=== PATIENT | male | born 1955 | race Caucasian/White ===

== ENCOUNTER 2017-11-09 12:32 | Inpatient (IN) | payer BC ==
[2017-11-09 13:49] LABS: #Eosinphils 0.2 thou/uL (0.0-0.7); #Lymphocytes 1.4 thou/uL (1.20-3.40); #Monocytes 0.5 thou/uL (0.11-0.59); #Neutrophils 4.5 thou/uL (1.40-6.50); %Basophils 0.4 % (0.0-1.0); %Eosinophils 2.7 % (0.0-10.0); %Lymphocytes 20.8 % (21.0-51.0); %Monocytes 6.8 % (0.0-10.0); %Neutrophils 69.3 % (42.0-75.0); Hemoglobin 13.1 g/dL (14.0-18.0); Mean Corpuscular HGB CONC 35.7 g/dL (32.0-36.0); Mean Corpuscular Hemoglobin 30.3 pg (27.0-31.0); Mean Platelet Volume 8.6 fL (7.4-10.4); Platelet Count 147 thou/uL (130-400); RBC Distribution Width 11.9 % (11.5-14.5); Red Blood Cell (RBC) Count 4.32 mill/uL (4.70-6.10); White Blood Cell (WBC) Count 6.5 thou/uL (4.8-10.8)
[2017-11-09 14:10] LABS: INR-International Normal Ratio 1.1; Prothrombin Time 14.3 SEC (12.0-14.7)
[2017-11-09 14:11] LABS: PTT 30.2 SEC (22.9-36.1)
[2017-11-09 14:16] LABS: Anion Gap 12 mmol/L (10-20); BUN (Urea Nitrogen) 21 mg/dL (8.4-25.7); Calc. Creatinine Clearance 0 mL/min (70-130); Calcium 10.1 mg/dL (7.8-10.44); Carbon Dioxide 26 mmol/L (23-31); Chloride 108 mmol/L (98-107); Estimated GFR-MDRD 57; Glucose 118 mg/dL (80-115); Potassium 4.4 mmol/L (3.5-5.1); Sodium 142 mmol/L (136-145)
--- NOTE | 2017-11-09 14:22 | RAD ---
TWO VIEW CHEST: Indication: Cough. Comparison: 08-01-09 FINDINGS: The lungs are clear. Cardiac silhouette is stable. No free air. Osseous structures are intact. IMPRESSION: No focal consolidation. POS: [facility]
--- NOTE | 2017-11-09 14:45 | ULT ---
VENOUS DOPPLER ULTRASOUND OF LEFT LOWER EXTREMITY: Date: 11/09/17 HISTORY: Left leg pain and redness. TECHNIQUE: Hess scale ultrasound with color flow and spectral Doppler imaging of the deep venous system of the l eft lower extremity is performed. FINDINGS: There is good flow, compression, and augmentation noted in the left common femoral, femoral, deep fem oral, popliteal, posterior tibial, and greater saphenous veins on either side. IMPRESSION: No evidence of deep venous thrombosis in the left lower extremity. POS: [facility]
[2017-11-09] MEDS ORDERED: Clindamycin/D5W 900 mg/50 ml Premix Bag ONE (15:06)
[2017-11-09] MEDS ORDERED: Sodium Chloride 0.9% 100 ML ONE (16:03)
[2017-11-09] MEDS ORDERED: Piperacillin/Tazobactam 4.5 GM VIAL ONE (16:03)
[2017-11-09] MEDS ORDERED: Acetaminophen 325 MG TAB PO PRN (19:13)
[2017-11-09 19:36] VITALS: BMI 26.4
[2017-11-09] MEDS ORDERED: Vancomycin HCl 1 GM in Premix Bag 1 BAG IVPB SCH (21:00)
[2017-11-09] MEDS ORDERED: Clindamycin/D5W 900 MG in Premix Bag 1 BAG IVPB SCH (22:00)
[2017-11-09] MEDS ORDERED: Ondansetron PF 4 MG/2 ML Vial IVP PRN (22:08)
[2017-11-09] MEDS ORDERED: Dextrose 5% in Water 1,000 ML IV PRN (22:11)
[2017-11-09] MEDS ORDERED: Dextrose 50% Abboject 50 ML SYRINGE SLOW IVP PRN (22:11)
[2017-11-09] MEDS ORDERED: HumaLOG 300 UNITS/3 ML VIAL SC PRN (22:11)
[2017-11-09] MEDS ORDERED: Acetaminophen 500 MG TAB PO SCH (22:45)
[2017-11-09] MEDS ORDERED: Gabapentin 300 MG CAP PO SCH (22:45)
[2017-11-09] MEDS ORDERED: diphenhydrAMINE 25 MG CAP PO SCH (22:45)
[2017-11-09] MEDS ORDERED: Tamsulosin HCl 0.4 MG CAP PO SCH (22:45)
[2017-11-09] MEDS ORDERED: Lisinopril 20 MG TAB PO SCH (22:45)
[2017-11-09] MEDS: Piperacillin/Tazobactam 3.375 GM in Sodium Chloride 0.9% 100 ML IVPB SCH (23:02)
[2017-11-09] MEDS: Sodium Chloride 0.9% 1,000 ML IV SCH (23:45)
--- NOTE | 2017-11-10 04:52 | HP ---
TIME OF EVALUATION: 09:45 p.m. PRIMARY CARE PHYSICIAN: Dr. Jose Enrique Post. CHIEF COMPLAINT: Leg swelling and redness. HISTORY OF PRESENT ILLNESS: This is a 62-year-old male patient with past medical history of diabetes who came to the hospital after having a left lower extremity redness, pain, swelling, decreased range of motion due to pain, patient also has associated fever, no purulent wound reported. symptoms are moderate, no clear triggers no alleviating factors. REVIEW OF SYSTEMS: Constitutional: The patient has fever, chills, generalized weakness. Respiratory: No cough, sputum production, or shortness of breath. Cardiovascular: No chest pain, palpitations, or shortness of breath. Gastrointestinal: No nausea, vomiting, diarrhea, or abdominal pain. Central Nervous Systems: No dizziness, headache, or feeling lightheaded. Genitourinary : No burning on urination. Extremities: The patient has left lower extremity swelling, redness, tenderness, decreased range of motion. All systems were reviewed and negative except for the findings mentioned above. PAST MEDICAL HISTORY: Includes diabetes, the patient also has hypothyroidism, history of bleeding ulcers, BPH. PAST SURGICAL HISTORY: The patient had a polyp removed from colon. PSYCHIATRIC HISTORY: No previous psychiatric history. SOCIAL HISTORY: The patient drinks socially. No smoking history. The patient lives at home with family, lives with his spouse. KNOWN ALLERGIES: No known drug allergies. FAMILY HISTORY: Review and non contributory for current presentation REPORTED MEDICATIONS: Omeprazole, aspirin, atorvastatin, finasteride, lisinopril, gabapentin, tamsulosin, levothyroxine, metformin, Coenzyme Q10, vitamin B12, fish oil, Flexeril. PHYSICAL EXAMINATION: VITAL SIGNS: Blood pressure 104/75 with heart rate 76, respiratory rate was 18 , temperature 98.5, oxygen saturation 95 on room air. GENERAL APPEARANCE: Patient is alert and oriented, in no any acute distress. HEAD AND EYES: Normal conjunctivae. Moist oral mucosa. Anicteric. NECK: No JVD. RESPIRATORY: Bilateral air entry. No wheezing. Symmetric expansion. CARDIOVASCULAR: Normal rate, regular rhythm. No murmurs, no gallop. EXTREMITIES: No edema. ABDOMEN: Soft, normal bowel sounds. MUSCULOSKELETAL: Baseline range of motion and strength. No tenderness. SKIN: The patient has left lower extremity redness, tenderness, swelling, decreased range of motion due to pain. RADIOLOGY: The patient has Doppler negative for DVT. LABORATORY DATA: Reviewed. The patient has white count 6.5, hemoglobin 13.1, MCV 85, platelet count 147,000. Coagulation was normal. Sodium 142, potassium 4.4, chloride 108, carbon dioxide 36, anion gap 12, BUN 21, creatinine 1.2, GFR 57, glucose 118. Lactic acid 1.3, calcium 10.1. ASSESSMENT AND PLAN: The patient will be placed in the hospital with following medical problems: 1. Left lower extremity cellulitis. The patient has been placed on antibiotics for that reason. Broad spectrum given the fact the patient is diabetic. We will adjust antibiotics. 2. Uncontrolled diabetes. Blood sugar 118, we will give sliding scale for optimal control. 3. History of coronary artery disease, this is chronic, stable. Reconcile home medications. 4. Hypothyroidism. Continue hormone replacement. 5. Deep venous thrombosis prophylaxis. 6. History of hypertension. Reconcile home medications. Chronic. Stable. MTDD
[2017-11-10 05:03] LABS: #Eosinphils 0.3 thou/uL (0.0-0.7); #Lymphocytes 1.3 thou/uL (1.20-3.40); #Monocytes 0.6 thou/uL (0.11-0.59); #Neutrophils 2.7 thou/uL (1.40-6.50); %Basophils 0.1 % (0.0-1.0); %Eosinophils 5.7 % (0.0-10.0); %Lymphocytes 26.7 % (21.0-51.0); %Neutrophils 55.5 % (42.0-75.0); Hemoglobin 12.6 g/dL (14.0-18.0); Mean Corpuscular HGB CONC 34.6 g/dL (32.0-36.0); Mean Corpuscular Hemoglobin 32.4 pg (27.0-31.0); Mean Corpuscular Volume 93.6 fL (78.0-98.0); Mean Platelet Volume 7.8 fL (7.4-10.4); Platelet Count 143 thou/uL (130-400); Red Blood Cell (RBC) Count 3.89 mill/uL (4.70-6.10); White Blood Cell (WBC) Count 4.9 thou/uL (4.8-10.8)
[2017-11-10] MEDS: Piperacillin/Tazobactam 3.375 GM in Sodium Chloride 0.9% 100 ML IVPB SCH ×4 (05:09→23:38)
[2017-11-10] MEDS: Levothyroxine Sodium 25 MCG TAB PO SCH (05:09)
[2017-11-10 05:53] LABS: Anion Gap 16 mmol/L (10-20); BUN (Urea Nitrogen) 22 mg/dL (8.4-25.7); Calc. Creatinine Clearance 69 mL/min (70-130); Calcium 8.9 mg/dL (7.8-10.44); Carbon Dioxide 21 mmol/L (23-31); Chloride 109 mmol/L (98-107); Estimated GFR-MDRD 57; Glucose 110 mg/dL (80-115); Potassium 4.5 mmol/L (3.5-5.1); Sodium 141 mmol/L (136-145)
[2017-11-10] MEDS: Fish Oil 1,000 MG CAP PO SCH (08:49)
[2017-11-10] MEDS: Enoxaparin Sodium 40 MG/0.4 ML SYRINGE SC SCH (08:49)
[2017-11-10] MEDS: Atorvastatin Calcium 40 MG TAB PO SCH (08:50)
[2017-11-10] MEDS: Folic Acid/Vit B Comp W-C PO SCH (08:50)
[2017-11-10] MEDS: Lisinopril 20 MG TAB PO SCH ×2 (08:50→21:07)
[2017-11-10] MEDS: Ubidecarenone 50 MG CAP PO SCH (08:50)
[2017-11-10] MEDS: Aspirin 81 mg Enteric Coated Tablet PO SCH (08:51)
[2017-11-10] MEDS: Sodium Chloride 0.9% 1,000 ML IV SCH ×2 (11:22→21:10)
--- NOTE | 2017-11-10 19:01 | PRG ---
DATE OF SERVICE: 11/10/2017 SUBJECTIVE: The patient is seen and examined at the bedside. He is feeling better. He does not hav e chills and fever like before this hospitalization. His pulse is noticed down to high 40s, but this is asymptomatic. OBJECTIVE: VITAL SIGNS: Blood pressure is 111/73, pulse is 49, respiratory rate is 18, O2 saturation is 92, tem perature is 98%. Temperature 98 degrees of Fahrenheit. HEENT: Atraumatic, normocephalic. Eyes are PERRLA. Sclerae nonicteric. Oral mucosa is moist. NECK: Supple. LUNGS: Clear. HEART: S1, S2 normal. ABDOMEN: Soft, nontender. EXTREMITIES: Left lower extremity above the ankle improved according to the patient who saw that yes terday and today it is significantly better. LABORATORY DATA: White count 4.9, hemoglobin 12.6, hematocrit 36.4, platelet count is 143,000. Chem istry showed a chloride of 109, CO2 of 21 and the rest of chemistry within normal limits. Glycemia i s ranging from 113 to 131. Microbiology: Blood culture no growth so far. IMPRESSION: 1. Left lower extremity cellulitis improved with IV clindamycin. 2. Uncontrolled diabetes, actually quite well controlled. 3. History of coronary artery disease, stable. 4. Hypothyroidism on replacement. 5. History of hypertension. PLAN: Continue clindamycin. We will check with progression and improvement of his infection. He sh ould be able to go home tomorrow.
[2017-11-10] MEDS: Acetaminophen 500 MG TAB PO SCH (21:06)
[2017-11-10] MEDS: Gabapentin 300 MG CAP PO SCH (21:06)
[2017-11-10] MEDS: Tamsulosin HCl 0.4 MG CAP PO SCH (21:06)
[2017-11-10] MEDS: diphenhydrAMINE 25 MG CAP PO SCH (21:06)
[2017-11-10] MEDS ORDERED: metFORMIN 500 MG TAB PO SCH (21:45)
[2017-11-10] MEDS ORDERED: metFORMIN XR 500 MG TAB PO SCH (21:45)
[2017-11-11] MEDS: Piperacillin/Tazobactam 3.375 GM in Sodium Chloride 0.9% 100 ML IVPB SCH ×4 (05:03→23:26)
[2017-11-11] MEDS: Levothyroxine Sodium 25 MCG TAB PO SCH (05:34)
[2017-11-11] MEDS: Sodium Chloride 0.9% 1,000 ML IV SCH ×2 (08:37→19:46)
[2017-11-11] MEDS: Enoxaparin Sodium 40 MG/0.4 ML SYRINGE SC SCH (08:37)
[2017-11-11] MEDS: Fish Oil 1,000 MG CAP PO SCH (08:38)
[2017-11-11] MEDS: Ubidecarenone 50 MG CAP PO SCH (08:38)
[2017-11-11] MEDS: Folic Acid/Vit B Comp W-C PO SCH (08:38)
[2017-11-11] MEDS: Atorvastatin Calcium 40 MG TAB PO SCH (08:39)
[2017-11-11] MEDS: Aspirin 81 mg Enteric Coated Tablet PO SCH (08:39)
[2017-11-11] MEDS: Lisinopril 20 MG TAB PO SCH ×2 (08:39→20:37)
[2017-11-11] MEDS: Insulin Glargine 14 UNITS in Pre-Filled Syringe 1 EACH SC SCH (08:39)
[2017-11-11] MEDS ORDERED: INSULIN GLARGINE HUM REC ANLOG SC SCH (09:00)
[2017-11-11] MEDS ORDERED: [UNRECOGNIZED DRUG - OTHER] SC SCH (09:00)
[2017-11-11] MEDS: Gabapentin 300 MG CAP PO SCH (20:37)
[2017-11-11] MEDS: Acetaminophen 500 MG TAB PO SCH (20:37)
[2017-11-11] MEDS: Tamsulosin HCl 0.4 MG CAP PO SCH (20:37)
[2017-11-11] MEDS: diphenhydrAMINE 25 MG CAP PO SCH (20:37)
[2017-11-11] MEDS: metroNIDAZOLE 500 MG TAB PO SCH (20:41)
[2017-11-11] MEDS ORDERED: metFORMIN XR 500 MG TAB PO SCH (21:00)
--- NOTE | 2017-11-11 23:50 | PDOC.PN ---
- Subjective Encounter Start Date: 11/11/17 Encounter Start Time: 17:00 Subjective: nsg notes rev, janine ovn, no new c/o other than diarrhea x6 today -: no prior issues with diarrhea -: also notes his HR has been low which is also new for him - Objective Resuscitation Status: Resuscitation Status FULL:Full Resuscitation Vital Signs & Weight: Vital Signs (12 hours) Temp Pulse Resp BP BP BP Pulse Ox 11/11/17 23:39 45 L 117/68 11/11/17 20:37 168/84 H 11/11/17 20:00 98.8 F 44 L 16 11/11/17 19:41 98.8 F 44 L 16 168/84 H 95 Weight Admit Weight 181 lb 7 oz Weight 181 lb 7 oz I&O: 11/10/17 11/11/17 11/12/17 06:59 06:59 06:59 Intake Total 1100 2740 3100 Output Total 600 1875 Balance 284 458 3995 Result Diagrams: 11/12/17 03:55 11/12/17 03:55 Additional Labs: Accuchecks 11/11/17 11/11/17 11/11/17 19:45 16:27 11:20 POC Glucose 163 H 118 H 134 H 11/11/17 06:07 POC Glucose 124 H Phys Exam - Physical Examination Constitutional: NAD HEENT: moist MMs Respiratory: no wheezing, no rales, no rhonchi, clear to auscultation bilateral Cardiovascular: RRR, no significant murmur, no rub Gastrointestinal: soft, positive bowel sounds Musculoskeletal: no edema Neurological: moves all 4 limbs -: area of cellulitis and edema is significantly imprv compared to outlined Dx/Plan - Plan * cellulitis of LLE * significantly improved * currently on pipt-az, may be able to de-escalate to an oral regimen diarrhea, acute check for c diff, if negative, could also be due to abx itself empiric metronidazole - d/c if c diff negative bradycardia pt with personal hx of CAD but no known hx of bradycardia, currently asymptomatic and other vital signs are stable c/s cardiology check EKG, TSH, ECHO pt reports increasing episodes of what he terms as "indigestion" over the past few weeks - unclear if this is an anginal equivalent - does not currently have this discomfort diet: cardiac activity: as simon dvt ppx Review of Systems - Medications/Allergies Allergies/Adverse Reactions: Allergies Allergy/AdvReac Type Severity Reaction Status Date / Time No Known Allergies Allergy Verified 11/09/17 20:03 Medications: Current Medications Acetaminophen (Tylenol) 500 mg PO HS [facility] Last Admin: 11/11/17 20:37 Dose: 500 mg Aspirin (Ecotrin) 81 mg PO DAILY [facility] Last Admin: 11/11/17 08:39 Dose: 81 mg Atorvastatin Calcium (Lipitor) 40 mg PO DAILY [facility] Last Admin: 11/11/17 08:39 Dose: 40 mg Coenzyme Q10 (Coenzyme Q10) 200 mg PO DAILY [facility] Last Admin: 11/11/17 08:38 Dose: 200 mg Dextrose/Water (Dextrose 50%) 25 gm SLOW IVP PRN PRN PRN Reason: Hypoglycemia Diphenhydramine HCl (Benadryl) 25 mg PO [facility] Last Admin: 11/11/17 20:37 Dose: 25 mg Enoxaparin Sodium (Lovenox) 40 mg SC 0900 [facility] Last Admin: 11/11/17 08:37 Dose: 40 mg Fish Oil (Fish Oil) 2,000 mg PO DAILY [facility] Last Admin: 11/11/17 08:38 Dose: 2,000 mg Gabapentin (Neurontin) 300 mg PO [facility] Last Admin: 11/11/17 20:37 Dose: 300 mg Glucagon (Glucagon) 1 mg IM PRN PRN PRN Reason: Hypoglycemia Piperacillin Sod/Tazobactam (Sod 3.375 gm/ Sodium Chloride) 100 mls @ 200 mls/ hr IVPB Q6HR [facility] Stop: 11/13/17 03:30 Last Admin: 11/11/17 23:26 Dose: 100 mls Dextrose/Water (D5w) 1,000 mls @ 0 mls/hr IV .Q0M PRN PRN Reason: Hypoglycemia Sodium Chloride (Normal Saline 0.9%) 1,000 mls @ 100 mls/hr IV .Q10H [facility] Last Admin: 11/11/17 19:46 Dose: 1,000 mls Insulin Glargine 14 units/ (Miscellaneous Medication) 0.14 mls @ 0 mls/hr SC DAILY [facility] Last Admin: 11/11/17 08:39 Dose: 0.14 mls Insulin Human Lispro (Humalog) 0 units SC .MILD SLIDING SCALE PRN PRN Reason: Mild Correctional Scale Levothyroxine Sodium (Synthroid) 25 mcg PO 0600 [facility] Last Admin: 11/11/17 05:34 Dose: 25 mcg Lisinopril (Zestril) 20 mg PO BID [facility] Last Admin: 11/11/17 20:37 Dose: 20 mg Metformin HCl (Glucophage Xr) 1,500 mg PO [facility] Last Admin: 11/11/17 20:38 Dose: 1,500 mg Metronidazole (Flagyl) 500 mg PO TID [facility] Last Admin: 11/11/17 20:41 Dose: 500 mg Ondansetron HCl (Zofran) 4 mg IVP Q6H PRN PRN Reason: Nausea/Vomiting Pantoprazole Sodium (Protonix) 40 mg PO DAILY [facility] Pantoprazole Sodium (Protonix) 40 mg PO NOW [facility] Stop: 11/11/17 23:59 Last Admin: 11/11/17 22:16 Dose: 40 mg Tamsulosin HCl (Flomax) 0.4 mg PO [facility] Last Admin: 11/11/17 20:37 Dose: 0.4 mg Vitamin B Complex/Vit C/Folic Acid (Nephro-Tori Tablet) 1 tab PO DAILY [facility] Last Admin: 11/11/17 08:38 Dose: 1 tab
[2017-11-12 04:03] LABS: #Basophils 0.1 thou/uL (0.0-0.2); #Eosinphils 0.2 thou/uL (0.0-0.7); #Lymphocytes 1.5 thou/uL (1.20-3.40); #Monocytes 0.4 thou/uL (0.11-0.59); #Neutrophils 2.2 thou/uL (1.40-6.50); %Basophils 1.5 % (0.0-1.0); %Eosinophils 4.6 % (0.0-10.0); %Lymphocytes 34.9 % (21.0-51.0); %Monocytes 8.2 % (0.0-10.0); %Neutrophils 50.9 % (42.0-75.0); Hemoglobin 12.1 g/dL (14.0-18.0); Mean Corpuscular HGB CONC 34.9 g/dL (32.0-36.0); Mean Corpuscular Hemoglobin 32.5 pg (27.0-31.0); Mean Corpuscular Volume 93.2 fL (78.0-98.0); Mean Platelet Volume 7.4 fL (7.4-10.4); Platelet Count 137 thou/uL (130-400); RBC Distribution Width 12.9 % (11.5-14.5); Red Blood Cell (RBC) Count 3.73 mill/uL (4.70-6.10); White Blood Cell (WBC) Count 4.3 thou/uL (4.8-10.8)
[2017-11-12 04:21] LABS: Anion Gap 12 mmol/L (10-20); BUN (Urea Nitrogen) 18 mg/dL (8.4-25.7); Calc. Creatinine Clearance 70 mL/min (70-130); Carbon Dioxide 23 mmol/L (23-31); Chloride 115 mmol/L (98-107); Estimated GFR-MDRD 58; Glucose 103 mg/dL (80-115); Magnesium 2.2 mg/dL (1.6-2.6); Potassium 4.7 mmol/L (3.5-5.1); Sodium 145 mmol/L (136-145)
[2017-11-12] MEDS: Levothyroxine Sodium 25 MCG TAB PO SCH (05:49)
[2017-11-12] MEDS: Sodium Chloride 0.9% 1,000 ML IV SCH ×2 (06:21→16:53)
[2017-11-12] MEDS: Piperacillin/Tazobactam 3.375 GM in Sodium Chloride 0.9% 100 ML IVPB SCH ×2 (06:21→12:32)
[2017-11-12] MEDS: Aspirin 81 mg Enteric Coated Tablet PO SCH (10:18)
[2017-11-12] MEDS: Atorvastatin Calcium 40 MG TAB PO SCH (10:18)
[2017-11-12] MEDS: Folic Acid/Vit B Comp W-C PO SCH (10:19)
[2017-11-12] MEDS: metroNIDAZOLE 500 MG TAB PO SCH ×3 (10:19→17:12)
[2017-11-12] MEDS: Ubidecarenone 50 MG CAP PO SCH (10:19)
[2017-11-12] MEDS: Fish Oil 1,000 MG CAP PO SCH (10:19)
[2017-11-12] MEDS: Lisinopril 20 MG TAB PO SCH (10:20)
[2017-11-12] MEDS: Enoxaparin Sodium 40 MG/0.4 ML SYRINGE SC SCH (10:20)
[2017-11-12] MEDS: Insulin Glargine 14 UNITS in Pre-Filled Syringe 1 EACH SC SCH (10:20)
[2017-11-12] MEDS ORDERED: Acetaminophen 325 MG TAB PO PRN (11:29)
[2017-11-12] MEDS ORDERED: hydrALAZINE 20 MG/ML VIAL SLOW IVP PRN (11:29)
--- NOTE | 2017-11-12 11:57 | PDOC.PN ---
- Subjective Encounter Start Date: 11/12/17 Encounter Start Time: 11:55 Subjective: nsg notes rev, janine ovn pt still c/o diarrhea, now has a ENGLISH -: no other c/o, pt's and dtr @ bedside - Objective Resuscitation Status: Resuscitation Status FULL:Full Resuscitation Vital Signs & Weight: Vital Signs (12 hours) Temp Pulse Resp BP BP BP Pulse Ox 11/12/17 10:20 142/73 H 11/12/17 08:00 98.3 F 46 L 14 142/73 H 94 L 11/12/17 04:50 97.7 F 45 L 15 153/89 H 98 11/12/17 03:30 97.7 F 45 L 15 98 11/12/17 03:27 40 L 132/76 Weight Admit Weight 181 lb 7 oz Weight 181 lb 7 oz I&O: 11/11/17 11/12/17 11/13/17 06:59 06:59 06:59 Intake Total 2740 3200 Output Total 1875 Balance 865 3200 Result Diagrams: 11/12/17 03:55 11/12/17 03:55 Additional Labs: Accuchecks 11/12/17 11/11/17 11/11/17 05:51 19:45 16:27 POC Glucose 108 163 H 118 H Phys Exam - Physical Examination Constitutional: NAD lying in the hospital bed HEENT: PERRLA, moist MMs Respiratory: no wheezing, no rales, no rhonchi, clear to auscultation bilateral Cardiovascular: RRR, no significant murmur, no rub bradycardic Gastrointestinal: soft, non-tender, positive bowel sounds Musculoskeletal: pulses present Neurological: moves all 4 limbs Psychiatric: normal affect, A&O x 3 Dx/Plan - Plan cellulitis of LLE * significantly improved * d/c piptaz, start bactrim diarrhea, acute c diff negative, d/c empiric metronidazole lomotil for symptomatic ctrl bradycardia pt with personal hx of CAD but no known hx of bradycardia, currently asymptomatic and other vital signs are stable c/s cardiology pending ECHO pt reports increasing episodes of what he terms as "indigestion" over the past few weeks - unclear if this is an anginal equivalent - does not currently have this discomfort diet: cardiac activity: as simon dvt ppx d/w pt and his family at bedside d/w bedside nsg Review of Systems - Medications/Allergies Allergies/Adverse Reactions: Allergies Allergy/AdvReac Type Severity Reaction Status Date / Time No Known Allergies Allergy Verified 11/09/17 20:03 Medications: Current Medications Acetaminophen (Tylenol) 500 mg PO HS [facility] Last Admin: 11/11/17 20:37 Dose: 500 mg Acetaminophen (Tylenol) 650 mg PO Q6H PRN PRN Reason: Headache/Fever or Pain Aspirin (Ecotrin) 81 mg PO DAILY [facility] Last Admin: 11/12/17 10:18 Dose: 81 mg Atorvastatin Calcium (Lipitor) 40 mg PO DAILY [facility] Last Admin: 11/12/17 10:18 Dose: 40 mg Coenzyme Q10 (Coenzyme Q10) 200 mg PO DAILY [facility] Last Admin: 11/12/17 10:19 Dose: 200 mg Dextrose/Water (Dextrose 50%) 25 gm SLOW IVP PRN PRN PRN Reason: Hypoglycemia Diphenhydramine HCl (Benadryl) 25 mg PO HS [facility] Last Admin: 11/11/17 20:37 Dose: 25 mg Enoxaparin Sodium (Lovenox) 40 mg SC 0900 [facility] Last Admin: 11/12/17 10:20 Dose: 40 mg Fish Oil (Fish Oil) 2,000 mg PO DAILY [facility] Last Admin: 11/12/17 10:19 Dose: 2,000 mg Gabapentin (Neurontin) 300 mg PO HS [facility] Last Admin: 11/11/17 20:37 Dose: 300 mg Glucagon (Glucagon) 1 mg IM PRN PRN PRN Reason: Hypoglycemia Hydralazine HCl (Apresoline) 10 mg SLOW IVP Q2H PRN PRN Reason: SBP GREATER THAN 160 Piperacillin Sod/Tazobactam (Sod 3.375 gm/ Sodium Chloride) 100 mls @ 200 mls/ hr IVPB Q6HR [facility] Stop: 11/13/17 03:30 Last Admin: 11/12/17 06:21 Dose: 100 mls Dextrose/Water (D5w) 1,000 mls @ 0 mls/hr IV .Q0M PRN PRN Reason: Hypoglycemia Sodium Chloride (Normal Saline 0.9%) 1,000 mls @ 100 mls/hr IV .Q10H [facility] Last Admin: 11/12/17 06:21 Dose: 1,000 mls Insulin Glargine 14 units/ (Miscellaneous Medication) 0.14 mls @ 0 mls/hr SC DAILY [facility] Last Admin: 11/12/17 10:20 Dose: 0.14 mls Insulin Human Lispro (Humalog) 0 units SC .MILD SLIDING SCALE PRN PRN Reason: Mild Correctional Scale Levothyroxine Sodium (Synthroid) 25 mcg PO 0600 [facility] Last Admin: 11/12/17 05:49 Dose: 25 mcg Lisinopril (Zestril) 20 mg PO BID [facility] Last Admin: 11/12/17 10:20 Dose: 20 mg Metformin HCl (Glucophage Xr) 1,500 mg PO [facility] Last Admin: 11/11/17 20:38 Dose: 1,500 mg Metronidazole (Flagyl) 500 mg PO TID [facility] Last Admin: 11/12/17 10:19 Dose: 500 mg Ondansetron HCl (Zofran) 4 mg IVP Q6H PRN PRN Reason: Nausea/Vomiting Pantoprazole Sodium (Protonix) 40 mg PO DAILY [facility] Last Admin: 11/12/17 10:19 Dose: 40 mg Tamsulosin HCl (Flomax) 0.4 mg PO [facility] Last Admin: 11/11/17 20:37 Dose: 0.4 mg Vitamin B Complex/Vit C/Folic Acid (Nephro-Tori Tablet) 1 tab PO DAILY [facility] Last Admin: 11/12/17 10:19 Dose: 1 tab
--- NOTE | 2017-11-12 13:32 | CON ---
DATE OF CONSULTATION: 11/12/2017 HISTORY OF PRESENT ILLNESS: The patient is a 62-year-old gentleman who presents for evaluation of cellulitis and noted to have a slow heart rate. The patient has a long history of coronary artery disease. He is previously status post PTCA and stent placement in 2004. He has a history of diffuse coronary artery disease. He had a 40% proximal LAD lesion, 50% mid lesion, 90% septal perforated. The left circumflex artery had a 20% lesion and the right coronary had a 99% proximal stenosis and 99% mid stenosis. The patient underwent PTCA and stent placed. The patient has done very well. He has been compliant with his medications. He has undergone a followup stress test which has been unremarkable. The patient was admitted with cellulitisand noted to have a slow heart rate. The patient denies any lightheadedness or dizziness. The patient denies having any history of syncope. The patient denies having any chest discomfort. PAST MEDICAL HISTORY: 1. Coronary artery disease. 2. Hypertension. 3. Diabetes mellitus. 4. History of hepatitis 5. Renal stone. 6. History of hypothyroidism. PAST SURGICAL HISTORY: Removal of colonic polyps. SOCIAL HISTORY: Nonsmoker. ALLERGIES: No known drug allergies. MEDICATIONS: Prilosec 40 daily, acetaminophen, Benadryl 1 tablet at bedtime, aspirin 81 daily, lisinopril 20 b.i.d., Lipitor 40 daily, Flomax 0.4 daily, Synthroid 25 mcg daily, Lipitor 40 at bedtime. ALLERGIES: No known drug allergies. PHYSICAL EXAMINATION: GENERAL: This is a well-developed gentleman, in no acute distress. VITAL SIGNS: Blood pressure is 143/89. NECK: No jugular distention, no carotid bruits. LUNGS: Clear to auscultation. HEART: Regular rate and rhythm, normal S1, S2, no murmurs. ABDOMEN: Nondistended. EXTREMITIES: Show no edema and no erythema. SKIN: Warm and dry. EKG reveals him to have marked sinus bradycardia, otherwise normal ECG. IMPRESSION: 1. Cellulitis, which has resolved. 2. Marked bradycardia, asymptomatic. 3. History of coronary artery disease. 4. History of percutaneous transluminal coronary angioplasty and stent placement. 5. Diabetes mellitus. 6. Hypertension. 7. Dyslipidemia. This gentleman presents with cellulitis. He was noted to have a markedly slow heart rate. The patient is asymptomatic. From a cardiac standpoint, we would discontinue Benadryl which may be worsening his bradycardia. Since the patient is asymptomatic, I have no further recommendations. MTDD
[2017-11-12 15:36] VITALS: BP 158/87; TEMP 98.5
[2017-11-12] MEDS ORDERED: Sulfameth/Trimethoprim DS 800-160mg TAB PO SCH (21:00)
--- NOTE | 2017-11-13 16:42 | DIS ---
PRIMARY CARE PHYSICIAN: Jose Enrique Post M.D. PATIENT'S INSIDE SALES: Arturo Ennis. DISCHARGE DIAGNOSES: 1. Cellulitis, resolved. 2. Asymptomatic bradycardia. 3. History of coronary artery disease, status post percutaneous coronary intervention. 4. Diabetes. 5. Hypertension. 6. Hyperlipidemia. BRIEF SUMMARY OF HOSPITAL COURSE: Mr. Garcia is a 62-year-old male with known history of cardiovascular disease, who initially presented with a chief complaint of left lower extremity swelling and redness. Please see the original history and physical for full details surrounding admission. On admission, the patient was felt to have predominantly cellulitis, for which he was started on empiric IV clindamycin. Patient had subsequent improvement of his cellulitis on this regimen. Blood cultures were negative. The patient was continued on oral Bactrim. During this hospitalization, the patient developed two other issues, one of which was asymptomatic bradycardia. Cardiology was consulted for further evaluation of the patient's bradycardia, and it was recommended for the patient to discontinue p.r.n. Benadryl utilization. As noted above, the patient was asymptomatic during his episode of bradycardia. Patient also developed some diarrhea, felt to be likely antibiotic induced. C. diff toxin antigen were negative. I have discussed with the patient's family at bedside and they are interested in utilizing probiotics as well. Remainder of the patient's chronic medical issues were stable during this hospitalization. CONSULTATION: Cardiology, Dr. Ennis. MEDICATION RECONCILIATION: Please see the EMR for full details. The patient will continue on his home regimen with the addition of Bactrim 1 tab p.o. b.i.d. , for which a prescription has been given to complete a full course. CONDITION AT DISCHARGE: At the time of discharge, patient is hemodynamically stable, tolerating his baseline activities and diet. PATIENT'S DISCHARGE INSTRUCTIONS: The patient is asked to follow up closely with his outpatient team including his primary care provider. Instructions regarding antibiotic utilization have been reviewed with the patient who is able to complete teachback. Greater than 30 minutes spent coordinating discharge. [facility]
--- NOTE | 2018-02-01 17:05 | EKG ---
Test Reason : STAT BRADYCARDIA Blood Pressure : / mmHG Vent. Rate : 044 BPM Atrial Rate : 044 BPM P-R Int : 136 ms QRS Dur : 090 ms QT Int : 448 ms P-R-T Axes : 045 006 018 degrees QTc Int : 383 ms Marked sinus bradycardia Abnormal ECG When compared with ECG of 10-JAN-2012 23:42, No significant change was found Confirmed by MARYCHUY MCCLELLAN M.D. ([id number]) on 02/01/2018 5:05:11 PM Referred By: BAHMAN Confirmed By:MARYCHUY MCCLELLAN M.D.
--- NOTE | 2018-02-01 17:10 | EKG ---
Test Reason : STAT Blood Pressure : / mmHG Vent. Rate : 038 BPM Atrial Rate : 038 BPM P-R Int : 150 ms QRS Dur : 088 ms QT Int : 490 ms P-R-T Axes : 044 024 027 degrees QTc Int : 389 ms Marked sinus bradycardia Abnormal ECG When compared with ECG of 11-NOV-2017 20:05, (Unconfirmed) No significant change was found Confirmed by MARYCHUY MCCLELLAN M.D. ([id number]) on 02/01/2018 5:09:53 PM Referred By: Dustin PETIT Confirmed By:MARYCHUY MCCLELLAN M.D.
== END 2017-11-12 17:16 | disposition home or self-care (01) | DRG 603 ==
LOC: SCSER 12:32 → ONC 15:43 → OBSVTOIN 15:43 → 2SE 11-12 04:41
PROVIDERS: ADMIT Internal Medicine; ATTEND Internal Medicine
PROC: B24BZZZ Ultrasonography of Heart with Aorta (ICD-10-PCS; principal; 2017-11-12)
DX: L03.116 Cellulitis of left lower limb (principal); E11.65 Type 2 diabetes mellitus with hyperglycemia; E03.9 Hypothyroidism, unspecified; Z86.010 Personal history of colon polyps; I25.10 Atherosclerotic heart disease of native coronary artery without angina pectoris; Z98.61 Coronary angioplasty status; I10 Essential (primary) hypertension; Z86.19 Personal history of other infectious and parasitic diseases; N20.0 Calculus of kidney; R00.1 Bradycardia, unspecified; E78.5 Hyperlipidemia, unspecified
CPT/HCPCS: 36415; 36416; 71046; 80048; 83605; 83735; 84443; 85025; 85379; 85610; 85730; 87040; 87324; 87449; 93005; 93010; 93306; 96365; 96367; J1650; J2543; J3490; J7050

== ENCOUNTER 2020-01-31 08:04 | Outpatient (CLI) | payer BC, OTHER ==
[2020-01-31 14:09] LABS: Hemoglobin 14.1 g/dL (14.0-18.0); Mean Corpuscular HGB CONC 33.5 g/dL (32.0-36.0); Mean Corpuscular Hemoglobin 31.2 pg (27.0-31.0); Mean Corpuscular Volume 93.1 fL (78.0-98.0); Mean Platelet Volume 9.9 fL (7.4-10.4); Platelet Count 149 thou/uL (130-400); Red Blood Cell (RBC) Count 4.51 mill/uL (4.70-6.10); White Blood Cell (WBC) Count 4.8 thou/uL (4.8-10.8)
[2020-01-31 14:25] LABS: Prothrombin Time 13.4 sec (12.0-14.7)
[2020-01-31 14:28] LABS: Bacteria/HPF None Seen HPF (None Seen); Bilirubin Negative (Negative); Blood, Urine Negative (Negative); Clarity Clear (Clear); Glucose, Urine (Dipstick) Normal (Negative); Ketone, Urine Negative (Negative); Leukocyte Negative Leu/uL (Negative); Nitrite Negative (Negative); Protein, Urine (Dipstick) Negative (Neg-Trace); RBC/HPF 0-3 HPF (0-3); Specific Gravity, Urine 1.022 (1.002-1.036); Squamous Epithelial 0-3 HPF (0-3); Urobilinogen Normal mg/dL (Less than 2); WBC/HPF 0-3 HPF (0-3)
[2020-01-31 14:38] LABS: Calcium 9.1 mg/dL (7.8-10.44); Chloride 109 mmol/L (98-107); Potassium 4.5 mmol/L (3.5-5.1); Sodium 140 mmol/L (136-145)
[2020-01-31 14:39] LABS: Glucose 94 mg/dL (80-115)
[2020-01-31 14:40] LABS: Carbon Dioxide 22 mmol/L (23-31)
[2020-01-31 14:41] LABS: Anion Gap 14 mmol/L (10-20)
[2020-01-31 14:42] LABS: Calc. Creatinine Clearance 0 mL/min (70-130); Estimated GFR-MDRD 61
[2020-01-31 14:43] LABS: BUN (Urea Nitrogen) 21 mg/dL (8.4-25.7)
[2020-02-01 10:30] LABS: SARS-CoV-2 MS2 Positive; SARS-CoV-2 N Gene Negative; SARS-CoV-2 S Gene Negative; SARS-CoV-2 by NAA Not Detected (NotDetected); SARS-CoV-2 orf1ab Negative
== END 2020-01-31 08:05 | disposition home or self-care (01) ==
LOC: LABBT 08:04
PROVIDERS: ATTEND Urology
DX: Z01.818 Encounter for other preprocedural examination (principal); N40.0 Benign prostatic hyperplasia without lower urinary tract symptoms; N21.0 Calculus in bladder; Z20.828 Contact with and (suspected) exposure to other viral communicable diseases
CPT/HCPCS: 80048; 81001; 85027; 85610; 85730; 87086; 87635; 93005; 93010; U0003

== ENCOUNTER 2020-02-03 06:11 | Day surgery (SDC) | payer BC ==
[2020-02-03] MEDS ORDERED: Levofloxacin 500 mg/D5W 100 ml Premix Bag ONE (06:58)
[2020-02-03] MEDS ORDERED: SUGAMMADEX SODIUM 200 MG/2 ML VIAL ONE (08:59)
[2020-02-03] MEDS ORDERED: Fentanyl 100 MCG/2 ML VIAL ONE ×3 (08:59→11:48)
[2020-02-03] MEDS ORDERED: Meperidine HCl/PF 25 MG/ML VIAL SLOW IVP PRN (09:57)
[2020-02-03] MEDS ORDERED: Promethazine HCl 25 MG/ML VIAL IM PRN (09:57)
[2020-02-03] MEDS ORDERED: Ketorolac Tromethamine 30 MG/ML VIAL IVP PRN ×2 (09:57→13:17)
[2020-02-03] MEDS ORDERED: Promethazine HCl 25 MG/ML VIAL SLOW IVP PRN (09:57)
[2020-02-03] MEDS ORDERED: Ondansetron HCl/PF 4 MG/2 ML Vial IVP PRN (09:57)
[2020-02-03] MEDS ORDERED: HYDROmorphone 2 MG/ML VIAL SLOW IVP PRN (09:57)
[2020-02-03] MEDS ORDERED: Ketorolac Tromethamine 30 MG/ML VIAL ONE (10:19)
[2020-02-03] MEDS ORDERED: Ondansetron PF 4 MG/2 ML Vial ONE (10:19)
[2020-02-03] MEDS ORDERED: EPHEDRINE 25 MG/5 ML SYRINGE ONE (10:19)
[2020-02-03] MEDS ORDERED: Rocuronium Bromide 10 MG/ML (10ML VIAL) ONE (10:19)
[2020-02-03] MEDS ORDERED: Lidocaine 1% PF 5 ML VIAL ONE (10:19)
[2020-02-03] MEDS ORDERED: Glycopyrrolate 0.2 MG/ML 5 ML SYRINGE ONE (10:19)
[2020-02-03] MEDS ORDERED: PROPOFOL 200 MG/20 ML VIAL ONE (10:19)
[2020-02-03] MEDS ORDERED: PHENYLEPHRINE-NS 100 MCG/ML 10 ML SYRINGE ONE (10:19)
[2020-02-03] MEDS ORDERED: Oxybutynin 5 MG TAB ONE (10:46)
--- NOTE | 2020-02-03 11:09 | OP ---
DATE OF PROCEDURE: 02/03/2020 PREOPERATIVE DIAGNOSES: Bladder stone, enlarged prostate with lower urinary tract symptoms. POSTOPERATIVE DIAGNOSES: Bladder stone, enlarged prostate with lower urinary tract symptoms. PROCEDURES PERFORMED: Laser cystolitholapaxy for large bladder stone, bipolar transurethral resection of the prostate. ANESTHESIA: General. COMPLICATIONS: None. ESTIMATED BLOOD LOSS: Minimal. SPECIMEN: Prostate chips. DESCRIPTION OF PROCEDURE: After informed consent, the patient was taken to the operating room, transferred to the table under his own power. Anesthesia was established. A time-out was performed, showing the correct patient, site, and procedure. Preoperative antibiotics were administered. He was prepped and draped in the lithotomy position. The urethral meatus was calibrated to 30-Tajik with Tamiko sounds. The rigid resectoscope with laser bridge was passed through the urethra noting normal course and caliber of the urethra. I noted a normal course and caliber of the urethra with large coapting lateral lobes, left greater than right of his prostate and a large median lobe. The bladder was entered and systematically examined noting [id number] trabeculation with minimal cellules. He does have a large bladder stone at the base of the bladder. The 550 micron laser fiber was inserted and used to fragment the stone into small pieces. These were all irrigated out through the scope. I then switched to the resection loop and resected the median lobe. I then resected from the bladder neck back to the verumontanum in the midline and then resected the left lobe from about 1 o'clock down to midline, followed by the right lobe from 11 o'clock to midline. Finally, anterior obstructing tissue was resected. Meticulous hemostasis was achieved. The Reji evacuator was used to retrieve all prostate chips. The bladder was then re-examined noting no further stone fragments or prostate chips. Both ureters were normal in appearance without involvement with resection. The scope was then withdrawn and a 22-Tajik 3-way catheter placed with 30 mL instilled in the balloon. CBI was connected, which was running clear as we completed the case. The patient was then awoken from anesthesia, transferred back to his hospital bed and taken to PACU in stable condition, where he will be admitted overnight. Job ID: [id number]
[2020-02-03] MEDS ORDERED: HYDROcodone/Acetaminophen 5/325 mg Tablet PO PRN (13:17)
[2020-02-03] MEDS ORDERED: Ondansetron PF 4 MG/2 ML Vial IVP PRN (13:17)
[2020-02-03] MEDS ORDERED: hydrALAZINE 20 MG/ML VIAL SLOW IVP PRN (13:17)
[2020-02-03] MEDS ORDERED: Hyoscyamine Sulfate SL 0.125 mg Tablet SL PRN (13:17)
[2020-02-03] MEDS ORDERED: diphenhydrAMINE 50 MG/ML VIAL IVP PRN (13:17)
[2020-02-03] MEDS ORDERED: Zolpidem Tartrate 5 MG TAB PO PRN (13:17)
[2020-02-03] MEDS: Sodium Chloride 0.9% 1,000 ML IV SCH ×2 (13:37→20:39)
[2020-02-03 19:35] VITALS: BMI 27.3
[2020-02-03] MEDS: Docusate 100 MG CAP PO SCH (20:37)
[2020-02-03] MEDS: Lisinopril 20 MG TAB PO SCH ×2 (20:37→20:44)
[2020-02-03] MEDS ORDERED: Gabapentin 300 MG CAP PO SCH (21:00)
[2020-02-03] MEDS ORDERED: Atorvastatin Calcium 40 MG TAB PO SCH (21:00)
[2020-02-04] MEDS: Sodium Chloride 0.9% 1,000 ML IV SCH ×3 (01:09→11:48)
[2020-02-04] MEDS ORDERED: Levothyroxine Sodium 25 MCG TAB PO SCH (06:00)
[2020-02-04] MEDS: Lisinopril 20 MG TAB PO SCH (08:20)
[2020-02-04] MEDS: Docusate 100 MG CAP PO SCH (08:21)
[2020-02-04] MEDS ORDERED: Aspirin 81 mg Enteric Coated Tablet PO SCH (09:00)
[2020-02-04 11:50] VITALS: BP 139/73; TEMP 97.7
== END 2020-02-04 12:03 | disposition home or self-care (01) ==
LOC: SDC 06:11 → SURG B 09:16 → SDC 02-04 12:03
PROVIDERS: ATTEND Urology
DX: N40.1 Benign prostatic hyperplasia with lower urinary tract symptoms (principal); R35.1 Nocturia; N21.0 Calculus in bladder; N30.00 Acute cystitis without hematuria; E11.9 Type 2 diabetes mellitus without complications; I11.9 Hypertensive heart disease without heart failure; F41.9 Anxiety disorder, unspecified; M19.90 Unspecified osteoarthritis, unspecified site; E07.9 Disorder of thyroid, unspecified; Z79.4 Long term (current) use of insulin; Z79.82 Long term (current) use of aspirin; Z79.899 Other long term (current) drug therapy
CPT/HCPCS: 36416; 88305; J1885; J1956; J2405; J2704; J3010